=== PATIENT | female | born 1980 | race Caucasian/White ===

== ENCOUNTER 2018-01-27 20:45 | Outpatient (CLI) | payer OTHER ==
[2018-01-27 22:13] VITALS: BP 102/56; PULSE 82; RESP 16; TEMP 98.5
== END 2018-01-27 21:54 | disposition home or self-care (01) ==
LOC: FBPOP 20:45
PROVIDERS: ATTEND Obstetrics & Gynecology Obstetrics
DX: O47.1 False labor at or after 37 completed weeks of gestation (principal); Z3A.40 40 weeks gestation of pregnancy
CPT/HCPCS: 59025; G0463; 99213

== ENCOUNTER 2018-11-26 18:05 | Emergency (ER) | payer OTHER ==
[2018-11-26 18:12] VITALS: TEMP 97.9
[2018-11-26] MEDS ORDERED: SODIUM CHLORIDE 0.9% 1,000 ML IV STA (18:16)
[2018-11-26 18:57] LABS: Glucose,Whole Blood 85 mg/dL (75-99)
[2018-11-26 19:04] LABS: Basophils % (A) 0 %; Eosinophils # (A) 0.1 k/uL (0-0.7); Eosinophils % (A) 1 %; HCT 39.2 % (34.0-46.0); HGB 13.3 gm/dL (11.4-16.0); Lymphocytes # (A) 1.4 k/uL (1.0-4.8); Lymphocytes % (A) 12 %; MCH 30.1 pg (25.0-35.0); MCV 88.5 fL (80.0-100.0); Mean Platelet Volume 6.1; Monocytes # (A) 0.5 k/uL (0-1.0); Monocytes % (A) 4 %; Neutrophils # (A) 10.3 k/uL (1.3-7.7); Neutrophils % (A) 83 %; Platelet Count 378 k/uL (150-450); RBC 4.43 m/uL (3.80-5.40); WBC 12.3 k/uL (3.8-10.6)
[2018-11-26 19:12] LABS: INR 0.9 (<1.2); Partial Thromboplastin Time 22.1 sec (22.0-30.0); Prothrombin Time 9.6 sec (9.0-12.0)
[2018-11-26 19:19] LABS: Appearance,Urine Cloudy (Clear); Bacteria,Urine Occasional /hpf; Bilirubin,Urine Negative (Negative); Blood,Urine Negative (Negative); Budding Yeast,Urine Occasional /hpf; Color,Urine Yellow; Glucose,Urine (UA) Negative (Negative); Ketones,Urine Trace (Negative); Leukocyte Esterase,Urine Large (Negative); Mucus,Urine Moderate /hpf; Nitrite,Urine Positive (Negative); Protein,Urine 2+ (Negative); RBC,Urine 2 /hpf (0-5); Specific Gravity,Urine 1.021 (1.001-1.035); Squamous Epithelial Cell,Urine 15 /hpf (0-4); Urobilinogen,Urine <2.0 mg/dL (<2.0); WBC,Urine 76 /hpf (0-5)
[2018-11-26 19:20] LABS: ALT 12 U/L (9-52); AST 14 U/L (14-36); Albumin 4.4 g/dL (3.5-5.0); Alkaline Phosphatase 52 U/L (38-126); Anion Gap 10 mmol/L; Blood Urea Nitrogen 6 mg/dL (7-17); Calcium 9.8 mg/dL (8.4-10.2); Carbon Dioxide 25 mmol/L (22-30); Chloride 104 mmol/L (98-107); Glucose 91 mg/dL (74-99); Potassium 4.1 mmol/L (3.5-5.1); Sodium 139 mmol/L (137-145); Total Bilirubin 0.5 mg/dL (0.2-1.3)
--- NOTE | 2018-11-26 19:54 | XR ---
EXAMINATION: XR chest 2V DATE AND TIME: 11/26/2018 7:20 PM CLINICAL INDICATION: PHH; syncope TECHNIQUE: Departmental protocol COMPARISON: 04/27/2016 FINDINGS: The lungs are clear. The pleural spaces are negative. The cardiac silhouette is not enlarged. The remainder of the mediastinal silhouette is unremarkable. The skeletal structures and soft tissues are negative for acute findings. IMPRESSION: NO ACUTE PROCESS.
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
[2018-11-26 20:34] VITALS: BP 105/63; PULSE 88; RESP 16
== END 2018-11-26 20:34 | disposition home or self-care (01) ==
LOC: EC 18:05
DX: R55 Syncope and collapse (principal); N39.0 Urinary tract infection, site not specified; F17.200 Nicotine dependence, unspecified, uncomplicated; Z88.6 Allergy status to analgesic agent
CPT/HCPCS: 36415; 71046; 80053; 81001; 84484; 85025; 85610; 85730; 93005; 96360; 96361; 99284

== ENCOUNTER 2019-02-05 14:30 | Emergency (ER) | payer OTHER ==
[2019-02-05 14:58] VITALS: TEMP 99.5
[2019-02-05] MEDS ORDERED: ACETAMINOPHEN TAB 325 MG TAB PO STA (15:13)
[2019-02-05 15:45] LABS: Basophils % (A) 0 %; Eosinophils # (A) 0.1 k/uL (0-0.7); Eosinophils % (A) 1 %; HCT 35.4 % (34.0-46.0); HGB 11.9 gm/dL (11.4-16.0); Lymphocytes # (A) 1.1 k/uL (1.0-4.8); Lymphocytes % (A) 10 %; MCH 29.5 pg (25.0-35.0); MCHC 33.7 g/dL (31.0-37.0); MCV 87.5 fL (80.0-100.0); Mean Platelet Volume 6.2; Monocytes # (A) 0.4 k/uL (0-1.0); Monocytes % (A) 4 %; Neutrophils # (A) 9.7 k/uL (1.3-7.7); Neutrophils % (A) 86 %; Platelet Count 367 k/uL (150-450); RBC 4.04 m/uL (3.80-5.40); WBC 11.4 k/uL (3.8-10.6)
[2019-02-05 15:53] LABS: ALT 12 U/L (9-52); AST 11 U/L (14-36); African American GFR (CKD) >90 (>60 ml/min/1.73 sqM); Albumin 3.5 g/dL (3.5-5.0); Alkaline Phosphatase 62 U/L (38-126); Anion Gap 9 mmol/L; Blood Urea Nitrogen 4 mg/dL (7-17); Calcium 9.1 mg/dL (8.4-10.2); Carbon Dioxide 22 mmol/L (22-30); Chloride 104 mmol/L (98-107); Glucose 84 mg/dL (74-99); Potassium 3.6 mmol/L (3.5-5.1); Sodium 135 mmol/L (137-145); Total Bilirubin 0.5 mg/dL (0.2-1.3); Total Protein 6.2 g/dL (6.3-8.2)
[2019-02-05 16:31] LABS: Amorphous Sediment,Urine Rare /hpf; Appearance,Urine Clear (Clear); Bacteria,Urine Moderate /hpf; Bilirubin,Urine Negative (Negative); Blood,Urine Negative (Negative); Color,Urine Light Yellow; Glucose,Urine (UA) Negative (Negative); Ketones,Urine Trace (Negative); Leukocyte Esterase,Urine Trace (Negative); Mucus,Urine Rare /hpf; Nitrite,Urine Negative (Negative); PH, Urine 7.5 (5.0-8.0); Protein,Urine Negative (Negative); RBC,Urine 1 /hpf (0-5); Specific Gravity,Urine 1.006 (1.001-1.035); Squamous Epithelial Cell,Urine 1 /hpf (0-4); Urobilinogen,Urine <2.0 mg/dL (<2.0)
[2019-02-05 17:09] VITALS: BP 99/58; PULSE 85; RESP 16
--- NOTE | 2019-02-05 17:18 | ED ---
Back Pain HPI - General Chief Complaint: Back Pain/Injury Stated Complaint: Back pain, SOB Time Seen by Provider: 02/05/19 15:03 Source: patient Limitations: no limitations - History of Present Illness Initial Comments: Patient is a 39-year-old female with complaints of right low back/flank pain 3 days. Patient admits to being 4-5 months . She has not yet seen an OB for her . This is her eighth . Patient denies any fever, chills, nausea, vomiting. Patient states she is having a hard time taking a deep breath secondary to the pain. Patient states a few days ago she went to try to stop her 2-year-old and he went the other way and she might have twisted something in her low back. Patient is denying any urinary complaints at this time. Patient denies history of kidney stones. Patient had regular bowel movement this morning. Patient denies any numbness, tingling, changes in bowel or bladder habit. No other complaints at this time. - Related Data Previous Rx's Medication Instructions Recorded Sulfamethox-Tmp 800-160Mg [Bactrim 1 tab PO Q12HR 3 Days #6 tab 11/26/18 DS 800-160 mg] Allergies Allergy/AdvReac Type Severity Reaction Status Date / Time ibuprofen [From Motrin] AdvReac Severe WEAKENED Verified 02/05/19 14:55 VEINS/BLEEDING Review of Systems ROS Statement: Those systems with pertinent positive or pertinent negative responses have been documented in the HPI. ROS Other: All systems not noted in ROS Statement are negative. 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 Past Anesthesia/Blood Transfusion Reactions: No Reported Reaction Past Psychological History: Anxiety Smoking Status: Current some day smoker Past Alcohol Use History: None Reported Past Drug Use History: Marijuana - Past Family History Mother Additional Family Medical History / Comment(s): lupus Father Additional Family Medical History / Comment(s): PTSD,heart paplitations General Exam - General Exam Comments Initial Comments: GENERAL: Well-appearing, well-nourished and in no acute distress. Appears uncomfortable. HEAD: Atraumatic, normocephalic. EYES: Pupils equal round and reactive to light, extraocular movements intact, sclera anicteric, conjunctiva are normal. ENT: TMs normal, nares patent, oropharynx clear without exudates. Moist mucous membranes. NECK: Normal range of motion, supple without lymphadenopathy or JVD. LUNGS: Breath sounds clear to auscultation bilaterally and equal. No wheezes rales or rhonchi. HEART: Regular rate and rhythm without murmurs, rubs or gallops. ABDOMEN: Tender to palpation to the right lumbar paraspinals, right flank area. Soft, normoactive bowel sounds. No guarding, no rebound. No masses appreciated. : Deferred EXTREMITIES: Normal range of motion, no pitting or edema. No clubbing or cyanosis. NEUROLOGICAL: Cranial nerves II through XII grossly intact. Normal speech, normal gait. PSYCH: Normal mood, normal affect. SKIN: Warm, Dry, normal turgor, no rashes or lesions noted. Limitations: no limitations Course Vital Signs 02/05/19 02/05/19 02/05/19 14:56 17:06 17:24 Temperature 99.5 F 99.5 F Pulse Rate 88 85 85 Respiratory 18 16 16 Rate Blood Pressure 92/55 99/58 99/58 O2 Sat by Pulse 99 99 99 Oximetry Medical Decision Making - Medical Decision Making Patient is a 39-year-old female with complaints of right low back/flank pain 3 days. Patient is 4-5 months . On exam patient is tender on the right lower lumbar area into the right flank area. CBC, CMP, UA are all within normal limits. Discussed with patient that this is most likely musculoskeletal in nature. Patient admits to twisting her back a few days ago while trying to stop her 2-year-old. Patient will be discharged home and counseled to rest and use Tylenol as needed for pain relief. Patient was in agreement with this plan of care. Return parameters were discussed with the patient and she verbalized understanding. Case was discussed with Dr. Bangura. - Lab Data Result diagrams: 02/05/19 15:35 02/05/19 15:35 Lab Results 02/05/19 02/05/19 02/05/19 Range/Units 15:35 15:35 16:10 WBC 11.4 H (3.8-10.6) k/uL RBC 4.04 (3.80-5.40) m/uL Hgb 11.9 (11.4-16.0) gm/dL Hct 35.4 (34.0-46.0) % MCV 87.5 (80.0-100.0) fL MCH 29.5 (25.0-35.0) pg MCHC 33.7 (31.0-37.0) g/dL RDW 13.0 (11.5-15.5) % Plt Count 367 (150-450) k/uL Neutrophils % 86 % Lymphocytes % 10 % Monocytes % 4 % Eosinophils % 1 % Basophils % 0 % Neutrophils # 9.7 H (1.3-7.7) k/uL Lymphocytes # 1.1 (1.0-4.8) k/uL Monocytes # 0.4 (0-1.0) k/uL Eosinophils # 0.1 (0-0.7) k/uL Basophils # 0.0 (0-0.2) k/uL Sodium 135 L (137-145) mmol/L Potassium 3.6 (3.5-5.1) mmol/L Chloride 104 (98-107) mmol/L Carbon Dioxide 22 (22-30) mmol/L Anion Gap 9 mmol/L BUN 4 L (7-17) mg/dL Creatinine 0.54 (0.52-1.04) mg/dL Est GFR (CKD-EPI)AfAm >90 (>60 ml/min/1.73 sqM) Est GFR (CKD-EPI)NonAf >90 (>60 ml/min/1.73 sqM) Glucose 84 (74-99) mg/dL Calcium 9.1 (8.4-10.2) mg/dL Total Bilirubin 0.5 (0.2-1.3) mg/dL AST 11 L (14-36) U/L ALT 12 (9-52) U/L Alkaline Phosphatase 62 (38-126) U/L Total Protein 6.2 L (6.3-8.2) g/dL Albumin 3.5 (3.5-5.0) g/dL Urine Color Light Yellow Urine Appearance Clear (Clear) Urine pH 7.5 (5.0-8.0) Ur Specific [place] 1.006 (1.001-1.035) Urine Protein Negative (Negative) Urine Glucose (UA) Negative (Negative) Urine Ketones Trace H (Negative) Urine Blood Negative (Negative) Urine Nitrite Negative (Negative) Urine Bilirubin Negative (Negative) Urine Urobilinogen <2.0 (<2.0) mg/dL Ur Leukocyte Esterase Trace H (Negative) Urine RBC 1 (0-5) /hpf Urine WBC 8 H (0-5) /hpf Ur Squamous Epith Cells 1 (0-4) /hpf Amorphous Sediment Rare H (None) /hpf Urine Bacteria Moderate H (None) /hpf Urine Mucus Rare H (None) /hpf Disposition Clinical Impression: Mechanical back pain Disposition: HOME SELF-CARE Condition: Stable Instructions (If sedation given, give patient instructions): Acute Low Back Pain (ED) Additional Instructions: Please return to the Emergency Department if symptoms worsen or any other concerns. Use Tylenol for pain relief and rest. Is patient prescribed a controlled substance at d/c from ED?: No Referrals: None,Stated [Primary Care Provider] - 1-2 days
== END 2019-02-05 17:26 | disposition home or self-care (01) ==
LOC: EC 14:30
DX: O99.89 Other specified diseases and conditions complicating pregnancy, childbirth and the puerperium (principal); M54.5 Low back pain; O99.332 Smoking (tobacco) complicating pregnancy, second trimester; F17.200 Nicotine dependence, unspecified, uncomplicated; Z88.6 Allergy status to analgesic agent; Z3A.20 20 weeks gestation of pregnancy; X50.1XXA Overexertion from prolonged static or awkward postures, initial encounter; Y93.89 Activity, other specified
CPT/HCPCS: 36415; 80053; 81001; 85025; 99283

== ENCOUNTER 2019-06-16 19:32 | Inpatient (IN) | payer OTHER ==
[2019-06-16 20:46] LABS: Amphetamine Screen,Urine Not Detected (NotDetected); Barbiturate Screen,Urine Not Detected (NotDetected); Benzodiazepines Screen,Urine Not Detected (NotDetected); Cocaine Screen,Urine Not Detected (NotDetected); Methadone Screen, Urine Not Detected (NotDetected); Opiate Screen,Urine Not Detected (NotDetected); Oxycodone Screen, Urine Not Detected (NotDetected); Phencyclidine Screen,Urine Not Detected (NotDetected); Tricyclic Antidepressant,Urine Not Detected (NotDetected); Urn Cannabinoid Scrn Detected (NotDetected)
[2019-06-16] MEDS ORDERED: OXYTOCIN 10 UNIT/ML 1 ML VIAL IM PRN (21:36)
[2019-06-16] MEDS ORDERED: LIDOCAINE 0.5% (PF) 5 MG/ML (50 ML SDV) SQ PRN (21:36)
[2019-06-16] MEDS ORDERED: TERBUTALINE 1 MG/ML VIAL SQ PRN (21:36)
[2019-06-16] MEDS ORDERED: AMPICILLIN 2,000 MG in SODIUM CHLORIDE 0.9% 100 ML IVPB STA (21:36)
[2019-06-16] MEDS ORDERED: METHYLERGONOVINE 0.2 MG/ML 1 ML AMP IM PRN (21:36)
[2019-06-16] MEDS ORDERED: CARBOPROST TROMETHAMINE 250 MCG/ML 1 ML AMP IM PRN (21:36)
[2019-06-16] MEDS ORDERED: OXYTOCIN 30 UNITS/500 ML NS 30 UNIT in SALINE 1 500ML.BAG IV SCH (21:45)
[2019-06-16 21:46] VITALS: BMI 29.5
[2019-06-16] MEDS: LACTATED RINGERS 1,000 ML IV SCH (21:47)
[2019-06-16 22:17] LABS: Basophils # (A) 0.1 k/uL (0-0.2); Basophils % (A) 1 %; Eosinophils # (A) 0.1 k/uL (0-0.7); Eosinophils % (A) 1 %; HCT 33.8 % (34.0-46.0); HGB 11.5 gm/dL (11.4-16.0); Lymphocytes # (A) 2.2 k/uL (1.0-4.8); Lymphocytes % (A) 25 %; MCH 29.9 pg (25.0-35.0); MCV 87.8 fL (80.0-100.0); Mean Platelet Volume 5.9; Monocytes # (A) 0.5 k/uL (0-1.0); Monocytes % (A) 5 %; Neutrophils # (A) 5.9 k/uL (1.3-7.7); Neutrophils % (A) 67 %; Platelet Count 464 k/uL (150-450); RBC 3.85 m/uL (3.80-5.40); RDW 12.8 % (11.5-15.5); WBC 8.8 k/uL (3.8-10.6)
[2019-06-16] MEDS ORDERED: BENZOCAINE/MENTHOL SPRAY 1 GM/SPRAY AEROSOL TOPICAL PRN (23:39)
[2019-06-16] MEDS ORDERED: diphenhydrAMINE 50 MG CAP PO PRN (23:39)
[2019-06-16] MEDS ORDERED: HYDROCORTISONE 2.5% RECTAL CREAM 30 GM TUBE RECTAL PRN (23:39)
[2019-06-16] MEDS ORDERED: diphenhydrAMINE 50 MG/ML 1 ML VIAL IVP PRN ×2 (23:39)
[2019-06-16] MEDS ORDERED: diphenhydrAMINE 25 MG CAP PO PRN (23:39)
[2019-06-16] MEDS ORDERED: LANOLIN CREAM 5 GM TUBE TOPICAL PRN (23:39)
[2019-06-16] MEDS ORDERED: WITCH HAZEL 1 EACH MED..PAD TOPICAL PRN (23:39)
[2019-06-16] MEDS ORDERED: IBUPROFEN 600 MG TAB PO PRN (23:39)
[2019-06-16] MEDS ORDERED: MEASLES-MUMPS-RUBELLA VACC/PF 12,500 UNIT/0.5 ML VIAL SQ ONE (23:39)
[2019-06-16] MEDS ORDERED: ZOLPIDEM 5 MG TAB PO PRN (23:39)
[2019-06-16] MEDS ORDERED: SIMETHICONE 80 MG CHEWABLE PO PRN (23:39)
--- NOTE | 2019-06-16 23:43 | P.HPOB ---
History of Present Illness H&P Date: 06/16/19 Chief Complaint: Intrauterine 36 weeks: labor: Polyhydramnios Patient is a 39 JONE 7 at 36 weeks' gestation arrives in active labor making cervical change yamilex every 4-6 minutes but making significant change likely due to her polyhydramnios. She does have a history of labor and delivery as well. Due to significant Polytrim as she was seen with maternal- medicine even late in . She did initially see maternal medicine due to advanced maternal age and she has been having nonstress tests and examinations weekly since approximately 32 weeks. All questions were answered for her at this time. I do not have the remainder of her record and have no access to the computer so this is somewhat limited in detail. That said, she is doing very well this time. There is a category 1 tracing. We'll plan due to significant Polytrim meals and ballotable presenting part starting some Pitocin and along the baby to come down some more even with her being significantly dilated time without rupturing her membranes to try and get the baby to engage better before doing. Some consideration is made to allowing the patient dilated all the way to complete and even potentially deliver within the sac if the baby remains unengaged. 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 Past Anesthesia/Blood Transfusion Reactions: No Reported Reaction Past Psychological History: Anxiety Additional Psychological History / Comment(s): SOB W/ PANIC ATTACK,ANXIETY INDUCED OCD Smoking Status: Current every day smoker Past Alcohol Use History: None Reported Additional Past Alcohol Use History / Comment(s): STARTED SMOKING AT AGE 17,1 PPD Past Drug Use History: Marijuana - Past Family History Mother Additional Family Medical History / Comment(s): lupus Father Additional Family Medical History / Comment(s): PTSD,heart paplitations Medications and Allergies Home Medications Medication Instructions Recorded Confirmed Type Pnv No.95/Ferrous Fum/Folic AC 1 tab PO ONCE 06/16/19 06/16/19 History [ Multivitamin Tablet] Allergies Allergy/AdvReac Type Severity Reaction Status Date / Time ibuprofen [From Motrin] AdvReac Severe WEAKENED Verified 06/16/19 19:42 VEINS/BLEEDING Exam Osteopathic Statement: *. No significant issues noted on an osteopathic structural exam other than those noted in the History and Physical/Consult. Vital Signs Temp Pulse Resp BP Pulse Ox 06/16/19 21:31 97.3 F L 87 16 111/76 96 06/16/19 21:21 97.3 F L 74 16 111/76 96 Intake and Output 06/16/19 06/16/19 06/17/19 14:59 22:59 06:59 Other: # Voids 1 Weight 75.75 kg - OBG Physical Exam Breast: both: normal (no masses) Abdomen: bowel sounds normal, no diffuse tenderness, no bruit present, no guarding noted, no hepatomegaly, no splenomegaly, no mass Vulva: both: normal Vagina: normal moisture, no discharge Cervix: no lesion, no discharge Uterus: normal size, normal contour Adnexa: both: normal Anus/Rectum: normal perianal skin, no rectal mass, no hemorrhoids, heme negative Results Result Diagrams: 06/16/19 21:43 Abnormal Lab Results - Last 24 Hours (Table) 06/16/19 06/16/19 Range/Units 20:20 21:43 Hct 33.8 L (34.0-46.0) % Plt Count 464 H (150-450) k/uL U Marijuana (THC) Screen Detected H (NotDetected)
--- NOTE | 2019-06-16 23:44 | P.PROBDLV ---
Vaginal Delivery Note - . Vaginal Delivery Note: Patient progressed complete and pushing with spontaneous vaginal delivery of a viable male over an intact perineum. Following delivery of the head anterior posterior shoulders were easily delivered and baby was then mouth nares bulb suctioned. Baby was then placed was abdomen where the umbilical cord was allowed to pulsate for approximately 1 minute prior to clamping cutting due to prematurity. There is spontaneous cry noted and nursery personnel was present and assumed care. Placenta was clamped and cut in usual fashion and the placenta was then delivered without difficulty. Inspection reveals in what appears to be an intact placenta. scores and weight are pending. Inspection of perineum reveals no lacerations. She and her baby appear stable this time.
[2019-06-16] MEDS ORDERED: OXYTOCIN 20 UNITS/1000 ML NS 1,000 ML IV SCH (23:45)
[2019-06-17] MEDS: ACETAMINOPHEN TAB 325 MG TAB PO PRN ×3 (00:10→20:21)
--- NOTE | 2019-06-17 09:10 | P.PNOBGVD ---
Subjective - Subjective Principal diagnosis: day 1 Interval history: Overall patient is doing very well. She is ambulating, voiding tolerating her diet. She voices no complaints and her vital signs are currently stable. Lochia is reported to be light. She does have some cramping but otherwise is doing well. She is day 1. Patient reports: Reports appetite normal, Reports voiding normally, Reports pain well controlled, Reports ambulating normally [place]: doing well Objective - Latest Vital Signs Latest vital signs: Vital Signs Temp Pulse Resp BP Pulse Ox 06/17/19 04:00 97.8 F 75 16 113/68 06/17/19 01:35 70 16 104/63 06/17/19 01:04 70 16 124/79 06/17/19 00:35 60 16 122/77 06/17/19 00:20 63 16 125/81 06/17/19 00:05 95 16 130/81 06/16/19 23:50 60 16 125/78 06/16/19 23:35 97.3 F L 67 16 125/74 97 06/16/19 21:31 97.3 F L 87 16 111/76 96 06/16/19 21:21 97.3 F L 74 16 111/76 96 Intake and Output 06/16/19 06/17/19 06/17/19 22:59 06:59 14:59 Intake Total 100 Output Total 1 Balance 99 Intake: Oral 100 Output: Urine 1 Other: # Voids 1 1 Weight 75.75 kg - Exam Lungs: bilateral: normal Chest: Normal S1, Normal S2 Extremities: Present: normal Abdomen: Present: normal appearance, soft Uterus: Present: normal, firm - Labs Labs: Abnormal Lab Results - Last 24 Hours (Table) 06/16/19 06/16/19 Range/Units 20:20 21:43 Hct 33.8 L (34.0-46.0) % Plt Count 464 H (150-450) k/uL U Marijuana (THC) Screen Detected H (NotDetected)
[2019-06-17] MEDS: SENNOSIDES-DOCUSATE SODIUM 1 EACH TAB PO SCH (09:38)
[2019-06-17] MEDS: AMPICILLIN 1,000 MG in SODIUM CHLORIDE 0.9% 50 ML IVPB SCH (10:17)
[2019-06-17] MEDS: LACTATED RINGERS 1,000 ML IV SCH (10:17)
[2019-06-18] MEDS: ACETAMINOPHEN TAB 325 MG TAB PO PRN ×2 (01:34→07:58)
[2019-06-18] MEDS: SENNOSIDES-DOCUSATE SODIUM 1 EACH TAB PO SCH ×2 (04:44→07:58)
--- NOTE | 2019-06-18 12:32 | P.DS ---
Providers Date of admission: 06/16/19 21:25 Expected date of discharge: 06/18/19 Attending physician: Darvin Philippe Primary care physician: Stated None Hospital Course: Ni is doing very well post day 2. She is ambulating, voiding and tolerating her diet. Plan for discharged to home later today. Vital signs are stable and afebrile. Heart regular, lungs clear, extremities without pain. Abdomen soft and uterus is firm. Lochia is reported light. Assessment day 2. Plan discharged home follow up with me in 6 weeks. Patient Condition at Discharge: Good Plan - Discharge Summary New Discharge Prescriptions: New Ibuprofen [Motrin] 600 mg PO Q6HR PRN #30 tab PRN Reason: Pain No Action Pnv No.95/Ferrous Fum/Folic AC [ Multivitamin Tablet] 1 tab PO ONCE Discharge Medication List Pnv No.95/Ferrous Fum/Folic AC [ Multivitamin Tablet] 1 tab PO ONCE 06/16/19 [History] Ibuprofen [Motrin] 600 mg PO Q6HR PRN #30 tab 06/18/19 [Rx] Follow up Appointment(s)/Referral(s): Darvin Philippe DO [Doctor of Osteopathic Medicine] - 1 Week Activity/Diet/Wound Care/Special Instructions: No heavy lifting, limit stairs and driving, and pelvic rest. If any high temperatures, heavy bleeding, or severe pain call my office Discharge Disposition: HOME SELF-CARE
[2019-06-18 16:36] VITALS: BP 110/60; PULSE 72; RESP 18; TEMP 98.2
== END 2019-06-18 18:56 | disposition home or self-care (01) | DRG 807 ==
LOC: FBPOP 19:32 → 4FBP 21:25
PROVIDERS: ADMIT Obstetrics & Gynecology; ATTEND Obstetrics & Gynecology
PROC: 10E0XZZ Delivery of Products of Conception, External Approach (ICD-10-PCS; principal; 2019-06-16)
PROC: 3E0134Z Introduction of Serum, Toxoid and Vaccine into Subcutaneous Tissue, Percutaneous Approach (ICD-10-PCS; 2019-06-16)
DX: O60.14X0 Preterm labor third trimester with preterm delivery third trimester, not applicable or unspecified (principal); Z37.0 Single live birth; O40.3XX0 Polyhydramnios, third trimester, not applicable or unspecified; O99.334 Smoking (tobacco) complicating childbirth; F17.210 Nicotine dependence, cigarettes, uncomplicated; Z3A.36 36 weeks gestation of pregnancy; Z23 Encounter for immunization; O99.89 Other specified diseases and conditions complicating pregnancy, childbirth and the puerperium; G89.29 Other chronic pain; M54.2 Cervicalgia; Z79.899 Other long term (current) drug therapy; Z86.59 Personal history of other mental and behavioral disorders; Z86.69 Personal history of other diseases of the nervous system and sense organs
CPT/HCPCS: 59025; 80306; 85025; 86850; 86900; 86901; 88307; 99213